=== PATIENT | female | born 1935 | race Caucasian/White ===

== ENCOUNTER → 2016-03-13 | Outpatient (CLI) | payer MEDICARE, OTHER | LOC: OD 11:09 | PROVIDERS: ATTEND Internal Medicine Geriatric Medicine | DX: D63.8 Anemia in other chronic diseases classified elsewhere (principal) | CPT/HCPCS: 36415; 82668 ==

== ENCOUNTER 2017-11-27 22:49 | Observation (INO) | payer MEDICARE, OTHER ==
[2017-11-27] MEDS ORDERED: AMOXICILLIN TR/POT CLAVULANATE 500-125 MG TAB PO ONE (23:35)
--- NOTE | 2017-11-27 23:36 | ER Document Report ---
ED General - General Chief Complaint: Chest Pain Stated Complaint: DOG BITE Time Seen by Provider: 11/27/17 22:59 Notes: Patient is a 82-year-old female with CAD that presents to the emergency department for chief complaint of chest pain, and dog bite to the right hand. Patient states that earlier today a pimple got in her backyard, and in the biting her on the right thumb, but in the event of all this she started having chest tightness in her right chest. Which has resolved since then. But she is concerned because she does have a history of CAD with stents. She rated the pain at the time as a 4 out of 10 as a chest tightness in the right side, which was similar to her prior chest pain symptoms when she states she had her [place]. She had mild shortness of breath associated with this, but no nausea vomiting or diaphoresis. She denies any significant pain associated with the bite mary kay on her right thumb. She states that the animal control officers were able to quarantine the 2 pit bulls that were involved in this incident. She is not sure of their rabies vaccination status, but they are being monitored by animal control. She denies noting any recent fevers, chills, cough. Past Medical History: CAD, hypertension, GERD, hyperlipidemia Past Surgical History: PCI with stenting Social History: Denies tobacco, alcohol or drug use. Family History: Reviewed and noncontributory for presenting illness Allergies: Reviewed, see documented allergy list. REVIEW OF SYSTEMS: Unless otherwise stated in this report the patient's positive and negative responses for review of systems for constitutional, eyes, ENT, cardiovascular, respiratory, gastrointestinal, neurological, genitourinary, musculoskeletal, and integumentary systems and related systems to the presenting problem are either as stated in the HPI or were not pertinent or were negative for the symptoms and/or complaints related to the presenting medical problem. PHYSICAL EXAMINATION: Vital signs reviewed, nursing noted reviewed. GENERAL: Elderly female and in no acute distress. HEAD: Atraumatic, normocephalic. EYES: Eyes appear normal, extraocular movements intact, sclera anicteric, conjunctiva are normal. ENT: nares patent, oropharynx clear without exudates. Moist mucous membranes. NECK: Normal range of motion, supple without lymphadenopathy LUNGS: Breath sounds clear to auscultation bilaterally and equal. No wheezes rales or rhonchi. HEART: Regular rate and rhythm without murmurs ABDOMEN: Soft, nontender, normoactive bowel sounds. No rebound, guarding, or rigidity. No masses appreciated. EXTREMITIES: Nontender, good range of motion, no pitting or edema. There is a small puncture wound over the right dorsal aspect of her thumb at the MCP joint , this is very superficial, just barely penetrates the skin, no active bleeding. There is mild ecchymosis associated with this. The patient otherwise has good range of motion of the thumb, and is not complaining of any significant pain with range of motion. Tendon function is intact. The rest of the patient's extremity exam is grossly unremarkable. NEUROLOGICAL: No focal neurological deficits. Moves all extremities spontaneously Motor and sensory grossly intact on exam. PSYCH: Normal mood, normal affect. SKIN: Warm, Dry, normal turgor, no rashes or lesions noted on exposed skin TRAVEL OUTSIDE OF THE [place] IN LAST 30 DAYS: No - Related Data Allergies/Adverse Reactions: oxycodone HCl [From Percocet] Allergy (Severe, Verified 01/27/14 16:23) throw up violently zolpidem tartrate [From Ambien] Adverse Reaction (Intermediate, Verified 16:23) unable to sleep Past Medical History - Social History Smoking Status: Never Smoker Family History: Reviewed & Not Pertinent - Past Medical History Cardiac Medical History: Reports: Hx Coronary Artery Disease, Hx Heart Attack, Hx Hypercholesterolemia, Hx Hypertension Pulmonary Medical History: Reports: Hx COPD Denies: Hx Asthma, Hx Bronchitis, Hx Pneumonia Neurological Medical History: Denies: Hx Cerebrovascular Accident, Hx Seizures Musculoskeletal Medical History: Reports Hx Arthritis - right knee Past Surgical History: Reports: Hx Cardiac Surgery - 3 stents, Hx Coronary Stent - x3, Hx Orthopedic Surgery - left foot, Hx Tonsillectomy. Denies: Hx Hysterectomy - Immunizations Hx Diphtheria, Pertussis, Tetanus Vaccination: Yes Hx Pneumococcal Vaccination: 02/25/07 Physical Exam - Vital signs Vitals: Temp Pulse Resp BP Pulse Ox 98.1 F 96 18 188/89 H 99 10 22:56 10 22:56 10 22:56 10 22:56 11/27/17 22:56 Course - Re-evaluation Re-evalutation: Patient seen and examined vital signs reviewed. Laboratory data and imaging were ordered as appropriate for the patient's presenting symptoms and complaint, with consideration of any critical or life threatening conditions that may be associated with their obtained history and exam as noted above. Patient was treated with aspirin, and tetanus vaccination, given low risk wound , and domestic animals, that were on by neighbors, I discussed that the patient rabies vaccination and immunoglobulin, and feel that in her case is some not be necessary as the dogs are being quarantined by animal control. Patient was agreeable to this plan of care. She was given Augmentin for her bite wound as well. Results were reviewed when available and demonstrated slightly elevated troponin , but not in the positive range. She was noted to have a new spiculated right lung lesion, concerning for carcinoma, patient was noted to be hyponatremic and hypercalcemic as well, concerning for possible small cell lung carcinoma. I did order CT of the chest without contrast to further delineate this mass. The patient was re-evaluated and was stable, discussed results with her, and admission, which she was agreeable to Evaluation was most consistent with chest pain, abnormal troponin, hyponatremia , hypercalcemia, and right lung mass. Results were discussed with the patient at this point after careful consideration I feel that that patient should be admitted to the hospital. This was discussed with the patient that it is in the best interest for their care to be admitted for further evaluation and management. Patient agreed with this plan of care. A call was placed to the admitted physician, Dr. Dawson who graciously accepted the patient onto their service. *Note is created using voice recognition software and may contain spelling, syntax or grammatical errors. Laboratory 11/27/17 11/27/17 11/27/17 23:26 23:26 23:26 WBC 8.4 RBC 3.75 Hgb 12.0 Hct 34.1 L MCV 91 MCH 32.0 MCHC 35.1 RDW 14.0 Plt Count 361 Seg Neutrophils % 82.5 H Lymphocytes % 11.0 L Monocytes % 5.8 Eosinophils % 0.2 Basophils % 0.5 Absolute Neutrophils 6.9 Absolute Lymphocytes 0.9 Absolute Monocytes 0.5 Absolute Eosinophils 0.0 Absolute Basophils 0.0 Sodium 131.1 L Potassium 4.4 Chloride 97 L Carbon Dioxide 21 L Anion Gap 13 BUN 28 H Creatinine 0.92 Est GFR ( Amer) > 60 Est GFR (Non-Af Amer) 58 L Glucose 118 H Calcium 10.5 H Total Bilirubin 0.6 Direct Bilirubin 0.2 Neonat Total Bilirubin Not Reportable Neonat Direct Bilirubin Not Reportable Neonat Indirect Bili Not Reportable AST 56 H ALT 40 Alkaline Phosphatase 58 Troponin I 0.021 Total Protein 8.4 H Albumin 4.6 Chest X-Ray 11/27/17 23:35 IMPRESSION: There is presence of a 2.5 x 2.3 cm nodular mass in the medial mid right lung zone, new in appearance. This lesion has spiculated margins and is highly suspicious for malignancy. Further evaluation of this lesion with dedicated CT of the chest is suggested . Chest CT 11/28/17 00:27 IMPRESSION: There is presence of a 2.5 x 2.6 x 2.8 cm mass in the medial aspect of the right upper lobe of the lung with spiculated margins and encroaching the right hilum. This lesion is highly suspicious for malignancy. Note is made of few pathologically enlarged lymph nodes in the mediastinum, the largest seen in the right paratracheal region and measuring 12 mm in short axis dimension. These findings can be further assessed with a CT PET examination TECHNICAL DOCUMENTATION: Quality ID # 436: Final reports with documentation of one or more dose reduction techniques (e.g., Automated exposure control, adjustment of the mA and/or kV according to patient size, use of iterative reconstruction technique) 2010 [employer]- All Rights Reserved - Vital Signs Vital signs: Temp Pulse Resp BP Pulse Ox 98.1 F 96 21 H 177/91 H 100 11/27/17 22:56 11/27/17 22:56 11/27/17 23:31 11/27/17 23:31 11/27/17 23:39 - Laboratory Result Diagrams: 11/27/17 23:26 11/27/17 23:26 Laboratory results interpreted by me: 11/27/17 11/27/17 23:26 23:26 Hct 34.1 L Seg Neutrophils % 82.5 H Lymphocytes % 11.0 L Sodium 131.1 L Chloride 97 L Carbon Dioxide 21 L BUN 28 H Est GFR (Non-Af Amer) 58 L Glucose 118 H Calcium 10.5 H AST 56 H Total Protein 8.4 H - EKG Interpretation by Me Additional EKG results interpreted by me: EKG demonstrates sinus rhythm with a ventricular rate of 90 bpm, normal axis, normal intervals, there is T wave inversion in lead III, aVF, no ST changes noted. This is compared with prior EKG, without significant change. Discharge - Discharge Clinical Impression: Mass of right lung, Hyponatremia, Hypercalcemia Chest pain Qualifiers: Chest pain type: unspecified Qualified Code(s): R07.9 - Chest pain, unspecified Dog bite Qualifiers: Encounter type: initial encounter Qualified Code(s): W54.0XXA - Bitten by dog, initial encounter Condition: Stable Disposition: ADMITTED OBSERVATION Admitting Provider: [facility] Admitted: Telemetry
[2017-11-27 23:46] LABS: ABSOLUTE LYMPHOCYTES (AUTO) 0.9 10^3/uL (0.5-4.7); ABSOLUTE MONOCYTES (AUTO) 0.5 10^3/uL (0.1-1.4); ABSOLUTE NEUT (AUTO) 6.9 10^3/uL (1.7-8.2); BASOPHILS % (AUTO) 0.5 % (0-2); EOSINOPHILS % (AUTO) 0.2 % (0-6); HEMATOCRIT 34.1 % (36.0-47.0); MEAN CORPUSCULAR HGB CONC 35.1 g/dL (32.0-36.0); MEAN CORPUSCULAR VOLUME 91 fl (80-97); MONOCYTES % (AUTO) 5.8 % (3-13); PLATELET COUNT 361 10^3/uL (150-450); RED BLOOD COUNT 3.75 10^6/uL (3.72-5.28); SEGMENTED NEUTROPHILS % (AUTO) 82.5 % (42-78); TOTAL CELLS COUNTED % (AUTO) 100 %; WHITE BLOOD COUNT 8.4 10^3/uL (4.0-10.5)
[2017-11-27 23:55] LABS: ALANINE AMINOTRANSFERASE 40 U/L (9-52); ALBUMIN 4.6 g/dL (3.5-5.0); ALKALINE PHOSPHATASE 58 U/L (38-126); ANION GAP 13 (5-19); ASPARTATE AMINO TRANSFERASE 56 U/L (14-36); BILIRUBIN,DIRECT 0.2 mg/dL (0.0-0.4); BILIRUBIN,TOTAL 0.6 mg/dL (0.2-1.3); BLOOD UREA NITROGEN 28 mg/dL (7-20); CALCIUM 10.5 mg/dL (8.4-10.2); CARBON DIOXIDE 21 mmol/L (22-30); CHLORIDE 97 mmol/L (98-107); GLUCOSE 118 mg/dL (75-110); POTASSIUM 4.4 mmol/L (3.6-5.0); SODIUM 131.1 mmol/L (137-145); TOTAL PROTEIN 8.4 g/dL (6.3-8.2)
--- NOTE | 2017-11-28 00:13 | RADIOLOGY REPORT (SQ) ---
PROCEDURE: XR CHEST 1 VIEW HISTORY: right chest pain COMPARISON: 11/28/2014 TECHNIQUE: The current study was done on 11/27/2017 at 11:45 PM Single projection of the chest was done. FINDINGS: There is presence of a 2.5 x 2.3 cm nodular mass in the medial mid right lung zone, new in appearance. This lesion has spiculated margins and is highly suspicious for malignancy. Further evaluation of this lesion with dedicated CT of the chest is suggested . There are no discrete airspace infiltrates, pneumothoraces or pleural effusions. The pulmonary vascularity is normal. The cardiomediastinal silhouette is stable. IMPRESSION: There is presence of a 2.5 x 2.3 cm nodular mass in the medial mid right lung zone, new in appearance. This lesion has spiculated margins and is highly suspicious for malignancy. Further evaluation of this lesion with dedicated CT of the chest is suggested .
[2017-11-28] MEDS ORDERED: NORMAL SALINE 1000 ML 1,000 ML IV ONE (00:21)
[2017-11-28] MEDS ORDERED: NORMAL SALINE 500 ML IV ONE (00:22)
[2017-11-28] MEDS ORDERED: ASPIRIN 81 MG TABLET, CHEWABLE PO ONE (00:31)
[2017-11-28] MEDS ORDERED: DIPH/PERTUSS(ACELL)/TETANUS VAC/PF 0.5 ML SYR (>=10YO) IM ONE (00:32)
--- NOTE | 2017-11-28 00:58 | RADIOLOGY REPORT (SQ) ---
EXAM DESCRIPTION: CT CHEST WITHOUT IV CONTRAST COMPLETED DATE/TME: 11/28/2017 00:27 CLINICAL HISTORY: 82 years, Female, RIGHT LUNG LESION COMPARISON: Chest x-ray done on the same day TECHNIQUE: CT of the chest was done in orthogonal planes without intravenous contrast Images stored on PACS. All CT scanners at this facility use dose modulation, iterative reconstruction, and/or weight based dosing when appropriate to reduce radiation dose to as low as reasonably achievable (ALARA). [facility]: Dose Right [facility]: CareDose [facility]: Dose Right [facility]: Teradose 4D [facility]: Smart Shockwave [facility] LIMITATIONS: None. FINDINGS: There is presence of a 2.5 x 2.6 x 2.8 cm mass in the medial aspect of the right upper lobe of the lung with spiculated margins and encroaching the right hilum. This lesion is highly suspicious for malignancy. Note is made of few pathologically enlarged lymph nodes in the mediastinum, the largest seen in the right paratracheal region and measuring 12 mm in short axis dimension. Few reactive lymph nodes are also seen in the AP window in the anterior mediastinum. There is presence of changes of COPD with areas of linear parenchymal scarring with superimposed mild pulmonary fibrosis in the periphery of the bilateral lower lobes of the lung. There is no pleural effusion or pneumothorax. There is no aneurysmal dilatation of the thoracic aorta. Multilevel degenerative changes seen in the thoracic spine. There are no significant findings in the visualized upper abdomen IMPRESSION: There is presence of a 2.5 x 2.6 x 2.8 cm mass in the medial aspect of the right upper lobe of the lung with spiculated margins and encroaching the right hilum. This lesion is highly suspicious for malignancy. Note is made of few pathologically enlarged lymph nodes in the mediastinum, the largest seen in the right paratracheal region and measuring 12 mm in short axis dimension. These findings can be further assessed with a CT PET examination TECHNICAL DOCUMENTATION: Quality ID # 436: Final reports with documentation of one or more dose reduction techniques (e.g., Automated exposure control, adjustment of the mA and/or kV according to patient size, use of iterative reconstruction technique) 2010 [employer]- All Rights Reserved
[2017-11-28] MEDS: NORMAL SALINE 1000 ML 1,000 ML IV PRN ×2 (03:51→13:41)
--- NOTE | 2017-11-28 08:34 | PDOC H&P ---
History of Present Illness Admission Date/PCP: 11/28/17 00:41 KIRK CARLYLE Patient complains of: Chest pain History of Present Illness: DESMOND JACKSON is a 82 year old female patient known to my practice who presented to the ED following aggravated incident involving her dog and two other pit bulls dogs that belong to her neighbour. Following her experience she developed chest discomfort and decided to present to the ED for further evaluation. She reported associated slight shortness of breath but denied any definite chest pain, palpitation, diaphoresis, nausea or vomiting. She reported a small bite lesion on her right thumb. She denied any fever of chills. The involved dogs are currently under local animal control quarantine observation. Her initial evaluation in the ED was significant for abnormal chest CT scan with right lung speculated mass and hyponatremia. She was advised hospitalization for rule out acute coronary syndrome in view of her prior history of stent angioplasty. Her morbidities include CAD s/p PCI with stenting , hypertension, hyperlipidemia, and GERD. Past Medical History Cardiac Medical History: Reports: Coronary Artery Disease, Myocardial Infarction , Hyperlipidema, Hypertension Pulmonary Medical History: Reports: Chronic Obstructive Pulmonary Disease (COPD) Denies: Asthma, Bronchitis, Pneumonia Neurological Medical History: Denies: Seizures Musculoskeltal Medical History: Reports: Arthritis - right knee Hematology: Denies: Anemia Past Surgical History Past Surgical History: Reports: Coronary Stent - x3, Orthopedic Surgery - left foot, Tonsillectomy Denies: Hysterectomy Social History Smoking Status: Never Smoker Frequency of Alcohol Use: None Hx Recreational Drug Use: No Hx Prescription Drug Abuse: No - Advance Directive Resuscitation Status: Full Code Family History Family History: Reviewed & Not Pertinent Parental Family History Reviewed: Yes Children Family History Reviewed: Yes Sibling(s) Family History Reviewed.: Yes Medication/Allergy Home Medications: Aspirin [Aspirin EC] 81 mg PO DAILY 11/28/17 Atorvastatin Calcium [Lipitor 10 mg Tablet] 10 mg PO QHS 11/28/17 Azilsartan Medoxomil [Edarbi] 80 mg PO DAILY 11/28/17 Biotin [Biotin 1 mg Tablet] 1 mg PO DAILY 11/28/17 Calcium Carbonate [Calcium] 600 mg PO DAILY 11/28/17 Ergocalciferol (Vitamin D2) [Drisdol 50,000 unit (1.25MG) Capsule] 50,000 unit PO .MONTHLY 11/28/17 Esomeprazole Mag Trihydrate [Nexium] 40 mg PO DAILY 11/28/17 Eszopiclone [Lunesta] 1 mg PO QHS 11/28/17 Felodipine [Felodipine ER] 10 mg PO QPM 11/28/17 Fluticasone Propionate [Flonase Nasal [place] 50 Mcg/[place] 16 gm] 2 spray NASL DAILYP PRN 11/28/17 Lutein 6 mg PO DAILY 11/28/17 Melatonin [Melatonin 5 mg Tablet] 5 mg PO QHS 11/28/17 Montelukast Sodium [Singulair 10 mg Tablet] 10 mg PO QPM 11/28/17 Multivit-Min/Iron/Folic/Lutein [Centrum Silver Women Tablet] 1 tab PO DAILY 06/12 [place]-3S/Dha/Epa/Fish Oil [Fish Oil 1,200 mg Softgel] 2 cap PO BID 11/28/17 Risedronate Sodium [Actonel 150 mg Tablet] 150 mg PO .MONTHLY 11/28/17 Zinc 50 mg PO DAILY 11/28/17 Allergies/Adverse Reactions: oxycodone HCl [From Percocet] Allergy (Severe, Verified 01/27/14 16:23) throw up violently zolpidem tartrate [From Ambien] Adverse Reaction (Intermediate, Verified 16:23) unable to sleep Physical Exam Vital Signs: Temp Pulse Resp BP Pulse Ox 97.8 F 98 15 167/82 H 100 11/28/17 02:20 11/28/17 02:20 11/28/17 02:20 11/28/17 02:20 11/28/17 02:20 Intake & Output 11/27/17 11/28/17 11/29/17 06:59 06:59 06:59 Intake Total 680 Balance 680 Weight 58.4 kg General appearance: PRESENT: no acute distress, well-developed, well-nourished Head exam: PRESENT: atraumatic, normocephalic Eye exam: PRESENT: conjunctiva pink, EOMI, PERRLA. ABSENT: scleral icterus Ear exam: PRESENT: normal external ear exam Mouth exam: PRESENT: moist Respiratory exam: PRESENT: clear to auscultation aleksandra Cardiovascular exam: PRESENT: RRR. ABSENT: diastolic murmur, rubs, systolic murmur Vascular exam: PRESENT: normal capillary refill. ABSENT: pallor GI/Abdominal exam: PRESENT: normal bowel sounds, soft. ABSENT: distended, guarding, mass, organolmegaly, rebound, tenderness Rectal exam: PRESENT: deferred Extremities exam: PRESENT: tenderness - minimally around right thumb site of dog bite vs scratched. ABSENT: pedal edema Musculoskeletal exam: PRESENT: deformity - related to multiple joints involvement with arthritis. Neurological exam: PRESENT: alert, awake, oriented to person, oriented to place , oriented to time, oriented to situation, CN II-XII grossly intact. ABSENT: motor sensory deficit Psychiatric exam: PRESENT: appropriate affect, normal mood. ABSENT: homicidal ideation, suicidal ideation Skin exam: PRESENT: dry, intact, warm. ABSENT: cyanosis, rash Results Laboratory Results: I reviewed her laboratory findings on [employer] and contribute significantly to my medical decision making. 11/28/17 05:13 Troponin I 0.043 Impressions: Chest X-Ray 11/27/17 23:35 IMPRESSION: There is presence of a 2.5 x 2.3 cm nodular mass in the medial mid right lung zone, new in appearance. This lesion has spiculated margins and is highly suspicious for malignancy. Further evaluation of this lesion with dedicated CT of the chest is suggested . Chest CT 11/28/17 00:27 IMPRESSION: There is presence of a 2.5 x 2.6 x 2.8 cm mass in the medial aspect of the right upper lobe of the lung with spiculated margins and encroaching the right hilum. This lesion is highly suspicious for malignancy. Note is made of few pathologically enlarged lymph nodes in the mediastinum, the largest seen in the right paratracheal region and measuring 12 mm in short axis dimension. These findings can be further assessed with a CT PET examination TECHNICAL DOCUMENTATION: Quality ID # 436: Final reports with documentation of one or more dose reduction techniques (e.g., Automated exposure control, adjustment of the mA and/or kV according to patient size, use of iterative reconstruction technique) 2010 [employer]- All Rights Reserved Assessment & Plan - Diagnosis (1) Chest pain with high risk of acute coronary syndrome Is this a current diagnosis for this admission?: Yes Plan: See admitting attending physician orders. (2) Dog bite Qualifiers: Encounter type: initial encounter Qualified Code(s): W54.0XXA - Bitten by dog, initial encounter Is this a current diagnosis for this admission?: Yes Plan: See admitting attending physician orders. (3) Mass of right lung Is this a current diagnosis for this admission?: Yes Plan: See admitting attending physician orders. (4) Hypercalcemia Is this a current diagnosis for this admission?: Yes Plan: See admitting attending physician orders. (5) Hyponatremia Is this a current diagnosis for this admission?: Yes Plan: See admitting attending physician orders. (6) CAD (coronary artery disease) Qualifiers: Coronary Disease-Associated Artery/Lesion type: [place] artery [place] vs. transplanted heart: [place] heart Associated angina: without angina Qualified Code(s): I25.10 - Atherosclerotic heart disease of [place] coronary artery without angina pectoris Is this a current diagnosis for this admission?: Yes Plan: See admitting attending physician orders. (7) HTN (hypertension) Qualifiers: Hypertension type: essential hypertension Qualified Code(s): I10 - Essential (primary) hypertension Is this a current diagnosis for this admission?: Yes Plan: See admitting attending physician orders. (8) HLD (hyperlipidemia) Qualifiers: Hyperlipidemia type: unspecified Qualified Code(s): E78.5 - Hyperlipidemia , unspecified Is this a current diagnosis for this admission?: Yes Plan: See admitting attending physician orders. (9) GERD (gastroesophageal reflux disease) Qualifiers: Esophagitis presence: without esophagitis Qualified Code(s): K21.9 - Gastro -esophageal reflux disease without esophagitis Is this a current diagnosis for this admission?: Yes Plan: See admitting attending physician orders. - Time Time Spent: 50 to 70 Minutes - Inpatient Certification Based on my medical assessment, after consideration of the patient's comorbidities, presenting symptoms, or acuity I expect that the services needed warrant INPATIENT care.: No I certify that my determination is in accordance with my understanding of Medicare's requirements for reasonable and necessary INPATIENT services [42 CFR 412.3e].: No Post Hospital Care: D/C [facility] Documentation - Plan Summary Plan Summary: See admitting attending physician orders.
[2017-11-28] MEDS ORDERED: FLUTICASONE NASAL SPRAY 50 MCG/SPRY 120 SPRAY/16 GM NASL PRN (08:35)
--- NOTE | 2017-11-28 08:53 | EKG REPORT ---
SEVERITY:- ABNORMAL ECG - SINUS RHYTHM PROBABLE LEFT ATRIAL ABNORMALITY INCOMPLETE RIGHT BUNDLE BRANCH BLOCK ABNORMAL T, CONSIDER ISCHEMIA, INFERIOR LEADS : Confirmed by: Alexander Carvajal 28-Nov-2017 08:52:32
[2017-11-28] MEDS ORDERED: LANSOPRAZOLE 30 MG TAB.RAP.DR PO SCH (09:45)
[2017-11-28] MEDS ORDERED: ENOXAPARIN SODIUM INJ 40 MG/0.4 ML DISP.SYRIN SUBCUT SCH (10:00)
[2017-11-28] MEDS ORDERED: FISH OIL PO SCH (10:00)
[2017-11-28] MEDS ORDERED: OMEGA PO SCH (10:00)
[2017-11-28] MEDS ORDERED: (PENDING PHARMACY ID) (Azilsartan Medoxomil [Edarbi] 80 MG) PO SCH (10:00)
[2017-11-28] MEDS ORDERED: EPA PO SCH (10:00)
[2017-11-28] MEDS ORDERED: ASPIRIN 81 MG TABLET, ENT COATED PO SCH (10:00)
[2017-11-28] MEDS ORDERED: (PENDING PHARMACY ID) (Calcium Carbonate [Calcium] 600 MG) PO SCH (10:00)
[2017-11-28] MEDS ORDERED: DHA PO SCH (10:00)
[2017-11-28] MEDS: AMOXICILLIN TR/POT CLAVULANATE 500-125 MG TAB PO SCH ×2 (10:17→14:54)
[2017-11-28] MEDS ORDERED: CALCIUM CARBONATE 500 MG TABLET PO SCH (11:00)
[2017-11-28] MEDS ORDERED: LOSARTAN POTASSIUM 50 MG TABLET PO SCH (11:00)
--- NOTE | 2017-11-28 14:07 | PDOC CONSULTATION ---
Consultation Consult Date: 11/28/17 Attending physician:: KIRK TADEO Consult reason:: Right lung mass History of Present Illness Admission Date/PCP: 11/28/17 00:41 KIRK TADEO History of Present Illness: DESMOND JACKSON is a 82 year old female very hard of hearing present for increasing shortness of breath agitated about her dog getting in a fight with other dogs denies shortness of breath at rest or dips and exertion he does admit to having a cough she denies any hemoptysis her PPD is PPD was negative dates unknown she has had no history of chronic lung disease as a child or adolescent. 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 she has 1 dog and she denies any recent travel she denies angina-like chest pain sleeps on 1-/2-2 pillows no PND no nocturnal cough no edema she is unaware of any snoring or restless sleep she has nocturia anywhere from 3-6 times per night she denies unrestful sleep or excessive daytime somnolence Past Medical History Cardiac Medical History: Reports: Coronary Artery Disease, Myocardial Infarction , Hyperlipidema, Hypertension Pulmonary Medical History: Reports: Chronic Obstructive Pulmonary Disease (COPD) Denies: Asthma, Bronchitis, Pneumonia Neurological Medical History: Denies: Seizures Endocrine Medical History: Denies: Hyperthyroidism, Hypothyroidism, Obesity Renal/ Medical History: Denies: Chronic Kidney Disease, End Stage Renal Disease, Nephrolithiasis Malignancy Medical History: Denies: Brain Cancer, Ovarian Cancer, Renal (Kidney) Cancer GI Medical History: Denies: Cirrhosis, Crohn's Disease Musculoskeltal Medical History: Reports: Arthritis - right knee Denies: Fibromyalgia Skin Medical History: Reports: None Psychiatric Medical History: Reports: None Hematology: Denies: Anemia Infectious Medical History: Reports: None Past Surgical History Past Surgical History: Reports: Coronary Stent - x3, Orthopedic Surgery - left foot, Tonsillectomy Denies: Hysterectomy Social History Information Source: Patient, [facility] Records Lives with: Alone Smoking Status: Never Smoker Passive smoke exposure as: Both Frequency of Alcohol Use: None Hx Recreational Drug Use: No Hx Prescription Drug Abuse: No Do you have pets?: Yes Have you had any respiratory illnesses as a child?: No Have you been exposed to any sick contacts recently?: No Have you had any recent respiratory illnesses?: No Have you travelled outside of [place] in the past 12 months?: No - Advance Directive Resuscitation Status: Full Code Family History Family History: CAD, Malignancy Parental Family History Reviewed: Yes Children Family History Reviewed: Yes Sibling(s) Family History Reviewed.: Yes Medication/Allergy Home Medications: Aspirin [Aspirin EC] 81 mg PO DAILY 11/28/17 Atorvastatin Calcium [Lipitor 10 mg Tablet] 10 mg PO QHS 11/28/17 Azilsartan Medoxomil [Edarbi] 80 mg PO DAILY 11/28/17 Biotin [Biotin 1 mg Tablet] 1 mg PO DAILY 11/28/17 Calcium Carbonate [Calcium] 600 mg PO DAILY 11/28/17 Ergocalciferol (Vitamin D2) [Drisdol 50,000 unit (1.25MG) Capsule] 50,000 unit PO .MONTHLY 11/28/17 Esomeprazole Mag Trihydrate [Nexium] 40 mg PO DAILY 11/28/17 Eszopiclone [Lunesta] 1 mg PO QHS 11/28/17 Felodipine [Felodipine ER] 10 mg PO QPM 11/28/17 Fluticasone Propionate [Flonase Nasal [place] 50 Mcg/[place] 16 gm] 2 spray NASL DAILYP PRN 11/28/17 Lutein 6 mg PO DAILY 11/28/17 Melatonin [Melatonin 5 mg Tablet] 5 mg PO QHS 11/28/17 Montelukast Sodium [Singulair 10 mg Tablet] 10 mg PO QPM 11/28/17 Multivit-Min/Iron/Folic/Lutein [Centrum Silver Women Tablet] 1 tab PO DAILY 06/12 [place]-3S/Dha/Epa/Fish Oil [Fish Oil 1,200 mg Softgel] 2 cap PO BID 11/28/17 Risedronate Sodium [Actonel 150 mg Tablet] 150 mg PO .MONTHLY 11/28/17 Zinc 50 mg PO DAILY 11/28/17 Allergies/Adverse Reactions: oxycodone HCl [From Percocet] Allergy (Severe, Verified 01/27/14 16:23) throw up violently zolpidem tartrate [From Ambien] Adverse Reaction (Intermediate, Verified 16:23) unable to sleep Review of Systems Constitutional: ABSENT: anorexia, chills, fatigue, fever(s), night sweats, weakness Eyes: ABSENT: visual disturbances Ears: ABSENT: hearing changes Nose, Mouth, and Throat: ABSENT: mouth pain, sore throat Cardiovascular: ABSENT: edema, orthropnea, palpitations Respiratory: ABSENT: hemoptysis Gastrointestinal: ABSENT: bloating, coffee ground emesis, dysphagia, hematemesis , hematochezia, melena Genitourinary: ABSENT: dysuria, hematuria Integumentary: ABSENT: pruritus, rash Neurological: ABSENT: abnormal gait, abnormal movements, abnormal speech, focal weakness, frequent falls, lack of coordination, memory loss Psychiatric: ABSENT: hallucinations, homidical ideation, suicidal ideation Endocrine: ABSENT: cold intolerance, heat intolerance, polydipsia, polyuria Hematologic/Lymphatic: ABSENT: easy bruising Allergic/Immunologic: ABSENT: seasonal rhinorrhea Physical Exam Vital Signs: Temp Pulse Resp BP Pulse Ox 98.3 F 83 16 158/70 H 99 11/28/17 07:51 11/28/17 07:51 11/28/17 07:51 11/28/17 07:51 11/28/17 07:51 Intake & Output 11/27/17 11/28/17 11/29/17 06:59 06:59 06:59 Intake Total 680 983 Balance 680 983 Weight 58.4 kg General appearance: PRESENT: no acute distress, cooperative, disheveled, well- developed, well-nourished Head exam: PRESENT: atraumatic, normocephalic Eye exam: PRESENT: conjunctiva pale, EOMI. ABSENT: nystagmus, scleral icterus Mouth exam: PRESENT: moist, neck supple, tongue midline Neck exam: ABSENT: carotid bruit, JVD, lymphadenopathy, thyromegaly, tracheal deviation, tracheostomy Respiratory exam: PRESENT: decreased breath sounds, prolonged expiratory phas, rhonchi, unlabored. ABSENT: retraction, stridor Cardiovascular exam: PRESENT: RRR, +S1, +S2 Pulses: PRESENT: normal radial pulses GI/Abdominal exam: PRESENT: soft. ABSENT: tenderness Extremities exam: ABSENT: calf tenderness, clubbing Musculoskeletal exam: ABSENT: deformity, dislocation Neurological exam: PRESENT: alert, awake Psychiatric exam: PRESENT: normal mood Skin exam: PRESENT: dry, warm Results Laboratory Results: 11/28/17 05:13 Serum Osmolality 281 11/28/17 05:13 Troponin I 0.043 Impressions: Chest X-Ray 11/27/17 23:35 IMPRESSION: There is presence of a 2.5 x 2.3 cm nodular mass in the medial mid right lung zone, new in appearance. This lesion has spiculated margins and is highly suspicious for malignancy. Further evaluation of this lesion with dedicated CT of the chest is suggested . Chest CT 11/28/17 00:27 IMPRESSION: There is presence of a 2.5 x 2.6 x 2.8 cm mass in the medial aspect of the right upper lobe of the lung with spiculated margins and encroaching the right hilum. This lesion is highly suspicious for malignancy. Note is made of few pathologically enlarged lymph nodes in the mediastinum, the largest seen in the right paratracheal region and measuring 12 mm in short axis dimension. These findings can be further assessed with a CT PET examination TECHNICAL DOCUMENTATION: Quality ID # [id number]: Final reports with documentation of one or more dose reduction techniques (e.g., Automated exposure control, adjustment of the mA and/or kV according to patient size, use of iterative reconstruction technique) 2010 [employer]- All Rights Reserved Assessment & Plan - Diagnosis (1) Hyponatremia Is this a current diagnosis for this admission?: Yes Plan: Labs- All tests 24 hr 11/27/17 23:26 Sodium 131.1 L (2) Mass of right lung Is this a current diagnosis for this admission?: Yes Plan: discussed bronchoscopy patient amenable needs to dc asa (3) GERD (gastroesophageal reflux disease) Qualifiers: Esophagitis presence: without esophagitis Qualified Code(s): K21.9 - Gastro -esophageal reflux disease without esophagitis Is this a current diagnosis for this admission?: Yes (4) HTN (hypertension) Qualifiers: Hypertension type: essential hypertension Qualified Code(s): I10 - Essential (primary) hypertension Is this a current diagnosis for this admission?: Yes
[2017-11-28 15:25] LABS: OSMOLALITY,URINE 426 mOsm/kg (300-900)
[2017-11-28 15:41] LABS: URINE SODIUM 117 mmol/L (30-90)
[2017-11-28] MEDS ORDERED: OMEGA-3 ACID ETHYL ESTERS 1 GM CAPSULE PO SCH (17:00)
[2017-11-28] MEDS ORDERED: (PENDING PHARMACY ID) (Felodipine [Felodipine Er] 10 MG) PO SCH (18:00)
[2017-11-28] MEDS ORDERED: AMLODIPINE BESYLATE 10 MG TABLET PO SCH (18:00)
[2017-11-28] MEDS ORDERED: MONTELUKAST SODIUM 10 MG TABLET PO SCH (18:00)
--- NOTE | 2017-11-28 18:45 | PDOC DISCHARGE SUMMARY ---
General - Admit/Disc Date/PCP Admission Date/Primary Care Provider: 11/28/17 00:41 KIRK CARLYLE Discharge Date: 11/28/17 - Discharge Diagnosis (1) Chest pain with high risk of acute coronary syndrome Is this a current diagnosis for this admission?: Yes (2) Dog bite Is this a current diagnosis for this admission?: Yes (3) Mass of right lung Is this a current diagnosis for this admission?: Yes (4) Hypercalcemia Is this a current diagnosis for this admission?: Yes (5) Hyponatremia Is this a current diagnosis for this admission?: Yes (6) CAD (coronary artery disease) Is this a current diagnosis for this admission?: Yes (7) HTN (hypertension) Is this a current diagnosis for this admission?: Yes (8) HLD (hyperlipidemia) Is this a current diagnosis for this admission?: Yes (9) GERD (gastroesophageal reflux disease) Is this a current diagnosis for this admission?: Yes - Additional Information Resuscitation Status: Full Code Discharge Diet: Regular, Other (Comments) - Low fat diet Discharge Activity: Activity As Tolerated Prescriptions: Amox Tr/Potassium Clavulanate [Augmentin "500" Tablet] 1 tab PO Q8 #14 tablet Home Medications: Amox Tr/Potassium Clavulanate [Augmentin "500" Tablet] 1 tab PO Q8 #14 tablet 11/28/17 Aspirin [Aspirin EC] 81 mg PO DAILY 11/28/17 Atorvastatin Calcium [Lipitor 10 mg Tablet] 10 mg PO QHS 11/28/17 Azilsartan Medoxomil [Edarbi] 80 mg PO DAILY 11/28/17 Biotin [Biotin 1 mg Tablet] 1 mg PO DAILY 11/28/17 Calcium Carbonate [Calcium] 600 mg PO DAILY 11/28/17 Ergocalciferol (Vitamin D2) [Drisdol 50,000 unit (1.25MG) Capsule] 50,000 unit PO .MONTHLY 11/28/17 Esomeprazole Mag Trihydrate [Nexium] 40 mg PO DAILY 11/28/17 Eszopiclone [Lunesta] 1 mg PO QHS 11/28/17 Felodipine [Felodipine ER] 10 mg PO QPM 11/28/17 Fluticasone Propionate [Flonase Nasal [place] 50 Mcg/[place] 16 gm] 2 spray NASL DAILYP PRN 11/28/17 Lutein 6 mg PO DAILY 11/28/17 Melatonin [Melatonin 5 mg Tablet] 5 mg PO QHS 11/28/17 Montelukast Sodium [Singulair 10 mg Tablet] 10 mg PO QPM 11/28/17 Multivit-Min/Iron/Folic/Lutein [Centrum Silver Women Tablet] 1 tab PO DAILY 06/12 [place]-3S/Dha/Epa/Fish Oil [Fish Oil 1,200 mg Softgel] 2 cap PO BID 11/28/17 Risedronate Sodium [Actonel 150 mg Tablet] 150 mg PO .MONTHLY 11/28/17 Zinc 50 mg PO DAILY 11/28/17 History of Present Illness Patient complains of: Chest pain, Dog bite History of Present Illness: DESMOND JACKSON is a 82 year old female patient known to my practice who presented to the ED following aggravated incident involving her dog and two other pit bulls dogs that belong to her neighbour. Following her experience she developed chest discomfort and decided to present to the ED for further evaluation. She reported associated slight shortness of breath but denied any definite chest pain, palpitation, diaphoresis, nausea or vomiting. She reported a small bite lesion on her right thumb. She denied any fever of chills. The involved dogs are currently under local animal control quarantine observation. Her initial evaluation in the ED was significant for abnormal chest CT scan with right lung speculated mass and hyponatremia. She was advised hospitalization for rule out acute coronary syndrome in view of her prior history of stent angioplasty. Her morbidities include CAD s/p PCI with stenting , hypertension, hyperlipidemia, and GERD. Hospital Course Hospital Course: Patient was treated with IV N/S fluid support. Her serial cardiac enzymes were within normal. Her symptoms did resolved. She was seen by Dr. Kenny, counter intelligence technician, regarding her right lung mass lesion. She is agreeable to outpatient bronchoscopy. Patient insisted upon discharge home today due to her sick dog. She will follow up with Dr Kenny and myself as instructed upon discharge, Physical Exam Vital Signs: Temp Pulse Resp BP Pulse Ox 98.1 F 73 14 187/62 H 98 11/28/17 18:23 11/28/17 18:23 11/28/17 18:23 11/28/17 18:23 11/28/17 18:23 Intake & Output 11/27/17 11/28/17 11/29/17 06:59 06:59 06:59 Intake Total 680 1455 Output Total 300 Balance 680 1155 Weight 58.4 kg General appearance: PRESENT: no acute distress, well-developed, well-nourished Head exam: PRESENT: atraumatic, normocephalic Ear exam: PRESENT: normal external ear exam Mouth exam: PRESENT: moist Respiratory exam: PRESENT: clear to auscultation aleksandra Cardiovascular exam: PRESENT: RRR. ABSENT: diastolic murmur, rubs, systolic murmur GI/Abdominal exam: PRESENT: normal bowel sounds, soft. ABSENT: distended, guarding, mass, organolmegaly, rebound, tenderness Extremities exam: ABSENT: pedal edema Neurological exam: PRESENT: alert, awake, oriented to person, oriented to place , oriented to time, oriented to situation, CN II-XII grossly intact. ABSENT: motor sensory deficit Skin exam: PRESENT: dry, warm, other - right thumb site of dog bite is clean without any drainage, discharge or significant erythema. Results Laboratory Results: 11/28/17 11/28/17 05:13 15:00 Serum Osmolality 281 Urine Osmolality 426 11/28/17 05:13 Troponin I 0.043 Impressions: Chest X-Ray 11/27/17 23:35 IMPRESSION: There is presence of a 2.5 x 2.3 cm nodular mass in the medial mid right lung zone, new in appearance. This lesion has spiculated margins and is highly suspicious for malignancy. Further evaluation of this lesion with dedicated CT of the chest is suggested . Chest CT 11/28/17 00:27 IMPRESSION: There is presence of a 2.5 x 2.6 x 2.8 cm mass in the medial aspect of the right upper lobe of the lung with spiculated margins and encroaching the right hilum. This lesion is highly suspicious for malignancy. Note is made of few pathologically enlarged lymph nodes in the mediastinum, the largest seen in the right paratracheal region and measuring 12 mm in short axis dimension. These findings can be further assessed with a CT PET examination TECHNICAL DOCUMENTATION: Quality ID # 436: Final reports with documentation of one or more dose reduction techniques (e.g., Automated exposure control, adjustment of the mA and/or kV according to patient size, use of iterative reconstruction technique) 2010 [employer]- All Rights Reserved Qualifiers - * PATIENT BEING DISCHARGED WITH ANY OF THE FOLLOWING DIAGNOSIS: No Plan Discharge Plan: Discharge home today. Follow up with Dr. Kenny and myself as instructed upon discharge.
[2017-11-28 19:23] LABS: CREATINE KINASE MB 2.24 ng/mL (<4.55); TROPONIN I 0.039 ng/mL
[2017-11-28 20:03] VITALS: BP 147/79
--- NOTE | 2017-11-28 20:20 | EKG REPORT ---
SEVERITY:- NORMAL ECG - SINUS RHYTHM NONDIAGNOSTIC ST DEPRESSION LEAD 3 AND AVF : Confirmed by: Alexander Carvajal 28-Nov-2017 20:19:13
[2017-11-28] MEDS ORDERED: ZOLPIDEM TARTRATE 5 MG TABLET PO SCH (22:00)
[2017-11-28] MEDS ORDERED: (PENDING PHARMACY ID) (Eszopiclone [Lunesta] 1 MG) PO SCH (22:00)
[2017-11-28] MEDS ORDERED: ATORVASTATIN CALCIUM 10 MG TABLET PO SCH (22:00)
[2017-11-29] MEDS ORDERED: LANSOPRAZOLE 30 MG TAB.RAP.DR PO SCH (06:00)
[2017-11-29] MEDS ORDERED: MULTIVITAMINS W-IRON TABLET, CHEWABLE PO SCH (10:00)
[2017-12-26] MEDS ORDERED: RISEDRONATE SODIUM 150 MG PO SCH (07:00)
[2017-12-26] MEDS ORDERED: ERGOCALCIFEROL (VITAMIN D2) 50000 UNIT (1.25 MG) CAPSULE PO SCH (10:00)
== END 2017-11-28 20:51 | disposition home or self-care (01) ==
LOC: ER 22:49 → EH 11-28 00:41 → 4N 11-28 02:13
PROVIDERS: ADMIT Internal Medicine Geriatric Medicine; ATTEND Internal Medicine Geriatric Medicine
PROC: 3E0234Z Introduction of Serum, Toxoid and Vaccine into Muscle, Percutaneous Approach (ICD-10-PCS; principal; 2017-11-27)
DX: R07.89 Other chest pain (principal); S60.371A Other superficial bite of right thumb, initial encounter; W54.0XXA Bitten by dog, initial encounter; Y92.007 Garden or yard of unspecified non-institutional (private) residence as the place of occurrence of the external cause; R91.8 Other nonspecific abnormal finding of lung field; E83.52 Hypercalcemia; E87.1 Hypo-osmolality and hyponatremia; I25.10 Atherosclerotic heart disease of native coronary artery without angina pectoris; Z95.5 Presence of coronary angioplasty implant and graft; I10 Essential (primary) hypertension; E78.5 Hyperlipidemia, unspecified; K21.9 Gastro-esophageal reflux disease without esophagitis; R06.02 Shortness of breath; R35.1 Nocturia; I25.2 Old myocardial infarction; Z79.899 Other long term (current) drug therapy; Z79.82 Long term (current) use of aspirin; Z77.22 Contact with and (suspected) exposure to environmental tobacco smoke (acute) (chronic); Z82.49 Family history of ischemic heart disease and other diseases of the circulatory system; Z23 Encounter for immunization
CPT/HCPCS: 93005 ×2; 99285; 96360; 90471; 36415 ×2; 82553; 82550; 83930; 83935; 84300; 85025; 80053; 84484 ×2; 71045; 71250; 90715; 93010 ×2; G0378; A9270 ×9; J7030

== ENCOUNTER 2017-12-12 08:02 | Day surgery (SDC) | payer MEDICARE, OTHER ==
[2017-12-09 12:27] LABS: INTERNATIONAL RATION (INR) 0.88; PROTHROMBIN TIME 12.4 SEC (11.4-15.4)
[2017-12-09 12:28] LABS: PARTIAL THROMBOPLASTIN TIME 27.6 SEC (23.5-35.8)
[2017-12-09 12:29] LABS: ABSOLUTE EOSINOPHILS # (AUTO) 0.1 10^3/uL (0.0-0.6); ABSOLUTE MONOCYTES (AUTO) 0.6 10^3/uL (0.1-1.4); ABSOLUTE NEUT (AUTO) 4.2 10^3/uL (1.7-8.2); BASOPHILS % (AUTO) 0.8 % (0-2); HEMATOCRIT 32.1 % (36.0-47.0); HEMOGLOBIN 11.5 g/dL (12.0-15.5); LYMPHOCYTES % (AUTO) 17.2 % (13-45); MEAN CORPUSCULAR HEMOGLOBIN 32.7 pg (27.0-33.4); MEAN CORPUSCULAR HGB CONC 35.9 g/dL (32.0-36.0); MEAN CORPUSCULAR VOLUME 91 fl (80-97); MONOCYTES % (AUTO) 9.7 % (3-13); PLATELET COUNT 393 10^3/uL (150-450); RED BLOOD COUNT 3.53 10^6/uL (3.72-5.28); RED CELL DISTRIBUTION WIDTH 13.9 % (11.5-14.0); SEGMENTED NEUTROPHILS % (AUTO) 71.3 % (42-78); TOTAL CELLS COUNTED % (AUTO) 100 %; WHITE BLOOD COUNT 5.9 10^3/uL (4.0-10.5)
[2017-12-09 12:50] LABS: ANION GAP 10 (5-19); BLOOD UREA NITROGEN 24 mg/dL (7-20); CALCIUM 9.8 mg/dL (8.4-10.2); CARBON DIOXIDE 25 mmol/L (22-30); CHLORIDE 97 mmol/L (98-107); GLUCOSE 100 mg/dL (75-110); POTASSIUM 4.4 mmol/L (3.6-5.0); SODIUM 131.7 mmol/L (137-145)
[~2017-12-12 08:02] MED LIST: ACETAMINOPHEN 325 MG TABLET PO SCH; ALBUTEROL SULFATE 0.083% NEB 2.5 MG/3 ML AMPUL NEB PRN; LACTATED RINGERS 1000 ML IV PRN; LIDOCAINE 4% INJ/PF (40 MG/ML) 5 ML AMPUL NEB PRN
[2017-12-12] MEDS ORDERED: KETAMINE HCL INJ 500 MG/10 ML VIAL ONE (08:11)
[2017-12-12] MEDS ORDERED: FENTANYL CITRATE INJ/PF 100 MCG/2 ML AMPUL ONE (08:11)
[2017-12-12] MEDS ORDERED: MIDAZOLAM 2 MG/2 ML INJ ONE (08:11)
[2017-12-12] MEDS ORDERED: PROPOFOL INJ 200 MG/20 ML VIAL IV ONE (08:12)
[2017-12-12] MEDS ORDERED: DEXMEDETOMIDINE INJ 80 MCG/20 ML VIAL IV ONE (08:12)
[2017-12-12] MEDS ORDERED: SUGAMMADEX SODIUM 200 MG/2 ML SDV IV ONE (08:12)
[2017-12-12] MEDS ORDERED: EPHEDRINE SULFATE INJ 50 MG/1 ML AMPULE ONE (08:12)
[2017-12-12] MEDS ORDERED: ALBUTEROL SULFATE 0.083% NEB 2.5 MG/3 ML AMPUL NEB ONE (08:47)
[2017-12-12] MEDS ORDERED: LIDOCAINE 4% INJ/PF (40 MG/ML) 5 ML AMPUL ONE (08:49)
[2017-12-12] MEDS ORDERED: AMPICILLIN SOD/SULBACTAM 1.5 GM VIAL ONE ×2 (11:03→11:05)
--- NOTE | 2017-12-12 12:02 | RADIOLOGY REPORT (SQ) ---
EXAM DESCRIPTION: CHEST SINGLE VIEW COMPLETED DATE/TIME: 12/12/2017 11:34 am REASON FOR STUDY: S/P Lung Biospy COMPARISON: 11/28/2014 EXAM PARAMETERS: NUMBER OF VIEWS: One view. TECHNIQUE: Single frontal radiographic view of the chest acquired. RADIATION DOSE: NA LIMITATIONS: None. FINDINGS: LUNGS AND PLEURA: Known right upper lobe mass is unchanged. No pneumothorax. MEDIASTINUM AND HILAR STRUCTURES: Stable. HEART AND VASCULAR STRUCTURES: Stable heart size. BONES: No acute findings. HARDWARE: None in the chest. OTHER: No other significant finding. IMPRESSION: Known right upper lobe mass status post biopsy. No pneumothorax. TECHNICAL DOCUMENTATION: JOB ID: [id number] [employer]- All Rights Reserved Reading location - IP/workstation name: [facility]2
[2017-12-12 13:05] LABS: FLUID APPEARANCE CLOUDY; FLUID COLOR RED; FLUID TYPE BRONCHIAL WASH; FLUID VISCOSITY LIQUID
[2017-12-12 13:31] VITALS: BP 165/84
--- NOTE | 2017-12-12 14:31 | RADIOLOGY REPORT (SQ) ---
EXAM DESCRIPTION: NO CHG FLUORO; CHEST SINGLE VIEW COMPLETED DATE/TIME: 12/12/2017 1:44 pm REASON FOR STUDY: BRONCHOSCOPY WITH BIOPSY RT LUNG ASST W/ FLUORO R91.8 OTHER NONSPECIFIC ABNORMAL FINDING OF LUNG FIELD Z79.01 CARE HOME (CURRENT) USE OF ANTICOAGULANTS COMPARISON: None. FLUOROSCOPY TIME: 1.7 minutes 9 images saved to PACS. TECHNIQUE: Intra-operative images acquired during surgical procedure to evaluate progress. NUMBER OF IMAGES: 9 LIMITATIONS: None. FINDINGS: Selected images from bronchoscopy. IMPRESSION: IMAGE(S) OBTAINED DURING PROCEDURE. COMMENT: Quality ID 145: Final reports for procedures using fluoroscopy that document radiation exp osure indices, or exposure time and number of fluorographic images (if radiation exposure indices are not available) Please consult full operative report of the attending physician for description of the procedure. TECHNICAL DOCUMENTATION: JOB ID: [id number] [employer]- All Rights Reserved Reading location - IP/workstation name: [facility]
--- NOTE | 2017-12-12 14:31 | RADIOLOGY REPORT (SQ) ---
EXAM DESCRIPTION: NO CHG FLUORO; CHEST SINGLE VIEW COMPLETED DATE/TIME: 12/12/2017 1:44 pm REASON FOR STUDY: BRONCHOSCOPY WITH BIOPSY RT LUNG ASST W/ FLUORO R91.8 OTHER NONSPECIFIC ABNORMAL FINDING OF LUNG FIELD Z79.01 INTERMEDIATE (CURRENT) USE OF ANTICOAGULANTS COMPARISON: None. FLUOROSCOPY TIME: 1.7 minutes 9 images saved to PACS. TECHNIQUE: Intra-operative images acquired during surgical procedure to evaluate progress. NUMBER OF IMAGES: 9 LIMITATIONS: None. FINDINGS: Selected images from bronchoscopy. IMPRESSION: IMAGE(S) OBTAINED DURING PROCEDURE. COMMENT: Quality ID 145: Final reports for procedures using fluoroscopy that document radiation exp osure indices, or exposure time and number of fluorographic images (if radiation exposure indices are not available) Please consult full operative report of the attending physician for description of the procedure. TECHNICAL DOCUMENTATION: JOB ID: [id number] [employer]- All Rights Reserved Reading location - IP/workstation name: [facility]
--- NOTE | 2017-12-12 16:43 | Operative Report ---
Operative Report DATE OF SURGERY: 12/12/17 Operative Report: She was kept n.p.o. 12 hours prior to procedure into the preop area where IV access was established consents and forms were reviewed and sign patient then taken to bronchoscopy suite and was intubated in rapid sequence per anesthesiology. Then using a T size Olympus scope tracheobronchial tree was explored there is no abnormalities of the distal trachea and no splaying of the horacio the left mainstem bronchus left upper lobe lingula and right lower lobes appeared to be within normal limits there were no abnormalities of the right mainstem bronchus right bronchus intermedius right middle lobe right lower lobe. Right upper lobe displays some sports distortion of all subsegments with submucosal swelling these areas were very friable and were oozing some blood lavage fluid transbronchial biopsies and Robin needle biopsies of the submucosal area were taken patient tolerated procedure well postprocedure SaO2 was 97% and postprocedure chest x-ray did not demonstrate a pneumothorax. The patient was given prophylactically 3 g of Unasyn IV. Pictures were taken area in the chart and the speech is also reviewed with the patient's family. Lavage fluid and tissue was sent to the lab for appropriate cultures and studies PREOPERATIVE DIAGNOSIS: Right upper lobe mass POSTOPERATIVE DIAGNOSIS: Right upper lobe mass OPERATION: Fiberoptic bronchoscopy with bronchoalveolar lavage, transbronchial biopsies and Robin needle biopsy SURGEON: WILLIAM GIMENEZ ANESTHESIA: GA TISSUE REMOVED OR ALTERED: Bronchoalveolar lavage fluid right upper lobe; transbronchial biopsies right upper lobe; Robin needle biopsies right upper lobe COMPLICATIONS: None ESTIMATED BLOOD LOSS: Less than 5 cc
== END 2017-12-12 13:30 | disposition home or self-care (01) ==
LOC: OROUT 08:02
PROVIDERS: ATTEND Internal Medicine Pulmonary Disease
DX: R91.8 Other nonspecific abnormal finding of lung field (principal); I10 Essential (primary) hypertension; Z88.5 Allergy status to narcotic agent; Z88.8 Allergy status to other drugs, medicaments and biological substances; I25.2 Old myocardial infarction; Z79.899 Other long term (current) drug therapy; Z87.891 Personal history of nicotine dependence; Z79.82 Long term (current) use of aspirin
CPT/HCPCS: 31628; 31629; 31624; 36415; 87070; 87205; 87206; 87116; 87101; 85025; 85610; 85730; 89050; 87077; 80048; 87186; 87015; 88104 ×2; 88305 ×2; 71045; 94640; J3490 ×2; J0295; J2704; A9270; 320; J2250; J3010

== ENCOUNTER → 2017-12-31 | Outpatient (CLI) | payer MEDICARE, OTHER ==
--- NOTE | 2018-01-01 13:12 | RADIOLOGY REPORT (SQ) ---
EXAM DESCRIPTION: PET CT SKULL/THIGH COMPLETED DATE/TIME: 12/31/2017 7:56 pm REASON FOR STUDY: OTHER NONSPECIFIC ABNORMAL FINDING OF LUNG FIELD R91.8 OTHER NONSPECIFIC ABNORMAL FINDING OF LUNG FIELD COMPARISON: CT chest 11/28/2017 RADIONUCLIDE AND DOSE: 11.1 mCi F18 FDG The route of agent administration: Intravenous FASTING BLOOD SUGAR: 90 mg/dl CONTRAST TYPE AND DOSE: No CT contrast given. TECHNIQUE: Blood glucose level was verified. Above dose of FDG was injected intravenously. 2-D seg mented attenuation correction images were obtained from the base of the skull to the midthighs. Nonc ontrast CT images were obtained for attenuation correction and fusion with emission images. CT image s were performed without oral or intravenous contrast and are not sensitive for parenchymal lesions. A series of overlapping emission PET images were obtained. Images reviewed and manipulated [email or web address] by the radiologist. Images stored on PACS. LIMITATIONS: None. FINDINGS: HEAD AND NECK: No areas of abnormal metabolic activity in the soft tissues of the head and neck. CHEST: 3.2 x 2.3 cm spiculated mass at the right hilum with SUV of 8.7 highly suspicious for malignan cy. The proximal anterior segmental bronchus is narrowed by the tumor on axial image 68/255. There are less than 7 mm short axis lymph nodes in the pretracheal and right paratracheal regions wit hout increased metabolic uptake. ABDOMEN AND PELVIS: No areas of abnormal metabolic activity in the abdomen or pelvis. Expected physi ologic activity is present in the genitourinary system and bowel. PROXIMAL LOWER EXTREMITIES: No areas of abnormal metabolic activity in the soft tissues of the lower extremities. BONES: No abnormal metabolic activity in the visualized skeleton. ADDITIONAL CT FINDINGS: Heavy coronary artery calcification. Diffuse degenerative changes throughout the thoracic and lumbar spine. Left hip replacement. OTHER: Liver background activity 2.2 SUV. 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
== END ==
LOC: RAD 15:55
PROVIDERS: ATTEND Internal Medicine Pulmonary Disease
DX: C34.11 Malignant neoplasm of upper lobe, right bronchus or lung (principal)
CPT/HCPCS: 78815; A9552

== ENCOUNTER 2018-06-24 14:23 | Emergency (ER) | payer MEDICARE, OTHER ==
[2018-06-24 14:28] VITALS: BP 157/74
--- NOTE | 2018-06-24 15:30 | ER Document Report ---
ED Medical Screen (RME) - General Chief Complaint: Fall Injury Stated Complaint: FALL Time Seen by Provider: 06/24/18 14:54 Primary Care Provider: KIRK TADEO MD [Primary Care Provider] - Follow up as needed Mode of Arrival: Wheelchair Information source: Patient Notes: Patient is an 83-year-old female presenting to the emergency department after suffering a mechanical fall. Patient states she was out shopping when she fell forward landing onto her face. She is unsure what caused the fall. She denies any episodes of dizziness prior to the fall. Patient is unsure if she lost consciousness but she does not think so. She denies any nausea or vomiting. Patient went to an urgent care to be seen prior to coming to the emergency department. Exam: Large hematoma noted above patient's right eyebrow with ecchymosis extending throughout cheek. I have greeted and performed a rapid initial assessment of this patient. A comprehensive ED assessment and evaluation of the patient, analysis of test results and completion of the medical decision making process will be conducted by additional ED providers. Dictation of this chart was performed using voice recognition software; therefore, there may be some unintended grammatical errors. TRAVEL OUTSIDE OF THE [place] IN LAST 30 DAYS: No - Related Data Allergies/Adverse Reactions: oxycodone HCl [From Percocet] Allergy (Severe, Verified 12/12/17 08:32) throw up violently cetirizine [From Zyrtec] Allergy (Verified 12/12/17 08:32) Dizzy gabapentin Allergy (Verified 12/12/17 08:32) Unknown tramadol Allergy (Verified 12/12/17 08:32) Nausea, Dizzy zolpidem tartrate [From Ambien] Adverse Reaction (Intermediate, Verified 12/12/17 08:32) unable to sleep ciprofloxacin [From Cipro] Adverse Reaction (Verified 06/24/18 14:52) Past Medical History - Past Medical History Cardiac Medical History: Reports: Hx Coronary Artery Disease - 3X STENT 2000, Hx Heart Attack - 2000, Hx Hypercholesterolemia, Hx Hypertension - ON MEDS Pulmonary Medical History: Denies: Hx Asthma, Hx Bronchitis, Hx Pneumonia Comment Only: Hx COPD - POSSIBLE H/O , NO MEDS; Pt denies 12/12/17 Neurological Medical History: Denies: Hx Cerebrovascular Accident, Hx Seizures Endocrine Medical History: Denies: Hx Hyperthyroidism, Hx Hypothyroidism Renal/ Medical History: Denies: Hx End Stage Renal Disease, Hx Peritoneal Dialysis Malignancy Medical History: Denies: Hx Brain Cancer, Hx Ovarian Cancer, Hx Renal (Kidney) Cancer GI Medical History: Denies: Hx Cirrhosis, Hx Crohn's Disease Musculoskeltal Medical History: Reports Hx Arthritis - Generalized , Denies Hx Fibromyalgia Past Surgical History: Reports: Hx Cardiac Surgery - 3 stents, Hx Coronary Stent - x3, Hx Orthopedic Surgery - left foot, total hip replacement R, Hx Tonsillectomy. Denies: Hx Hysterectomy - Immunizations Hx Diphtheria, Pertussis, Tetanus Vaccination: Yes History of Influenza Vaccine for 11/2016 - 04/2017 Season: Yes Influenza Administration Date for 11/2016 - 04/2017 Season: 11/26/16 Physical Exam - Vital signs Vitals: Temp Pulse Resp BP Pulse Ox 98.0 F 57 L 18 157/74 H 99 06/24/18 14:26 06/24/18 14:26 06/24/18 14:26 06/24/18 14:26 06/24/18 14:26 Course - Vital Signs Vital signs: Temp Pulse Resp BP Pulse Ox 98.0 F 57 L 18 157/74 H 99 06/24/18 14:26 06/24/18 14:26 06/24/18 14:26 06/24/18 14:26 06/24/18 14:26 Doctor's Discharge - Discharge Referrals: KIRK TADEO MD [Primary Care Provider] - Follow up as needed
--- NOTE | 2018-06-24 15:46 | RADIOLOGY REPORT (SQ) ---
EXAM DESCRIPTION: CT FACIAL AREA WITHOUT COMPLETED DATE/TIME: 06/24/2018 3:23 pm REASON FOR STUDY: fall COMPARISON: None. TECHNIQUE: Noncontrasted images through the facial bones and orbits windowed for bone and soft tissu e. Additional coronal and sagittal reconstructed images reviewed. All images stored on PACS. All CT scanners at this facility use dose modulation, iterative reconstruction, and/or weight based d osing when appropriate to reduce radiation dose to as low as reasonably achievable (ALARA). [facility]: Dose Right [facility]: CareDose [facility]: Dose Right [facility]: Teradose 4D [facility]: [employer] RADIATION DOSE: CT Rad equipment meets quality standard of care and radiation dose reduction techniq ues were employed. CTDIvol: 30.4 mGy. DLP: 557 mGy-cm. mGy. LIMITATIONS: None. FINDINGS: FACIAL BONES: Nondisplaced right orbital floor fracture. ORBITS: See above. PARANASAL SINUSES: Fluid right maxillary sinus. SOFT TISSUES: Right facial hematoma. INFERIOR BRAIN: See separate report. OTHER: No other significant finding. IMPRESSION: Nondisplaced right orbital floor fracture. TECHNICAL DOCUMENTATION: JOB ID: [id number] Quality ID # [id number]: Final reports with documentation of one or more dose reduction techniques (e.g., Au tomated exposure control, adjustment of the mA and/or kV according to patient size, use of iterative reconstruction technique) 2010 [employer] - [employer]- All Rights Reserved Reading location - IP/workstation name: [email or web address]
--- NOTE | 2018-06-24 15:48 | RADIOLOGY REPORT (SQ) ---
EXAM DESCRIPTION: CT HEAD WITHOUT COMPLETED DATE/TIME: 06/24/2018 3:23 pm REASON FOR STUDY: fall COMPARISON: None. TECHNIQUE: Axial images acquired through the brain without intravenous contrast. Images reviewed wi th bone, brain and subdural windows. Additional sagittal and coronal reconstructions were generated. Images stored on PACS. All CT scanners at this facility use dose modulation, iterative reconstruction, and/or weight based d osing when appropriate to reduce radiation dose to as low as reasonably achievable (ALARA). [facility]: Dose Right [facility]: CareDose [facility]: Dose Right [facility]: Teradose 4D [facility]: [employer] ([employer]) RADIATION DOSE: CT Rad equipment meets quality standard of care and radiation dose reduction techniq ues were employed. CTDIvol: 53.2 mGy. DLP: 1017 mGy-cm.mGy. LIMITATIONS: None. FINDINGS: VENTRICLES: Prominent. CEREBRUM: No masses. No hemorrhage. No midline shift. Areas of low density in the white matter mos t likely due to chronic micro-vascular ischemic change. No evidence for acute infarction. CEREBELLUM: No masses. No hemorrhage. No alteration of density. No evidence for acute infarction. EXTRAAXIAL SPACES: Age-related involutional change. No fluid collections. No masses. ORBITS AND GLOBE: See separate report of the same date. CALVARIUM: No fracture. PARANASAL SINUSES: See separate report of the same date. SOFT TISSUES: Right facial hematoma. OTHER: No other significant finding. IMPRESSION: CHRONIC CHANGES OF ATROPHY AND MICROVASCULAR ISCHEMIA. NO ACUTE PROCESS. EVIDENCE OF ACUTE STROKE: NO. TECHNICAL DOCUMENTATION: JOB ID: [id number] Quality ID # [id number]: Final reports with documentation of one or more dose reduction techniques (e.g., Au tomated exposure control, adjustment of the mA and/or kV according to patient size, use of iterative reconstruction technique) 2010 [employer]- All Rights Reserved Reading location - IP/workstation name: [email or web address]
--- NOTE | 2018-06-24 16:11 | RADIOLOGY REPORT (SQ) ---
EXAM DESCRIPTION: CT CERVICAL SPINE WITHOUT COMPLETED DATE/TIME: 06/24/2018 3:23 pm REASON FOR STUDY: fall COMPARISON: None. TECHNIQUE: Axial images acquired through the cervical spine without intravenous contrast. Images re viewed with lung, soft tissue and bone windows. Reconstructed coronal and sagittal MPR images review ed. Images stored on PACS. All CT scanners at this facility use dose modulation, iterative reconstruction, and/or weight based d osing when appropriate to reduce radiation dose to as low as reasonably achievable (ALARA). [facility]: Dose Right [facility]: CareDose [facility]: Dose Right [facility]: Teradose 4D [facility]: [employer] RADIATION DOSE: CT Rad equipment meets quality standard of care and radiation dose reduction techniq ues were employed. CTDIvol: 13.0 mGy. DLP: 235 mGy-cm. mGy. LIMITATIONS: None. FINDINGS: ALIGNMENT: Grade 1 spondylolisthesis C3-4, C4-5 MINERALIZATION: Normal. VERTEBRAL BODIES: No fractures or dislocation. DISCS: Multilevel disc space narrowing with osteophytes. FACETS, LATERAL MASSES, POSTERIOR ELEMENTS: Facet arthropathy. No fractures. No dislocation. No ac curyung findings. HARDWARE: None in the spine. VISUALIZED RIBS: No fractures. LUNG APICES AND SOFT TISSUES: No significant or acute findings. OTHER: No other significant finding. IMPRESSION: CHRONIC DEGENERATIVE CHANGES. NO ACUTE FINDINGS. TECHNICAL DOCUMENTATION: JOB ID: [id number] Quality ID # [id number]: Final reports with documentation of one or more dose reduction techniques (e.g., Au tomated exposure control, adjustment of the mA and/or kV according to patient size, use of iterative reconstruction technique) 2010 [employer]- All Rights Reserved Reading location - IP/workstation name: [email or web address]
[2018-06-24 17:31] LABS: ABSOLUTE BASOPHILS # (AUTO) 0.1 10^3/uL (0.0-0.2); ABSOLUTE EOSINOPHILS # (AUTO) 0.1 10^3/uL (0.0-0.6); ABSOLUTE LYMPHOCYTES (AUTO) 0.6 10^3/uL (0.5-4.7); ABSOLUTE MONOCYTES (AUTO) 0.5 10^3/uL (0.1-1.4); ABSOLUTE NEUT (AUTO) 5.8 10^3/uL (1.7-8.2); BASOPHILS % (AUTO) 1.3 % (0-2); EOSINOPHILS % (AUTO) 1.6 % (0-6); HEMATOCRIT 34.2 % (36.0-47.0); HEMOGLOBIN 11.8 g/dL (12.0-15.5); LYMPHOCYTES % (AUTO) 7.9 % (13-45); MEAN CORPUSCULAR HEMOGLOBIN 31.6 pg (27.0-33.4); MEAN CORPUSCULAR HGB CONC 34.6 g/dL (32.0-36.0); MEAN CORPUSCULAR VOLUME 91 fl (80-97); MONOCYTES % (AUTO) 7.4 % (3-13); PLATELET COUNT 346 10^3/uL (150-450); RED BLOOD COUNT 3.75 10^6/uL (3.72-5.28); RED CELL DISTRIBUTION WIDTH 14.9 % (11.5-14.0); SEGMENTED NEUTROPHILS % (AUTO) 81.8 % (42-78); TOTAL CELLS COUNTED % (AUTO) 100 %; WHITE BLOOD COUNT 7.1 10^3/uL (4.0-10.5)
[2018-06-24 17:33] LABS: APPEARANCE,URINE CLEAR; BILIRUBIN,URINE NEGATIVE (NEGATIVE); COLOR,URINE YELLOW; GLUCOSE, URINE NEGATIVE (NEGATIVE); KETONES,URINE TRACE mg/dL (NEGATIVE); LEUKOCYTE ESTERASE,URINE NEGATIVE (NEGATIVE); NITRITE,URINE NEGATIVE (NEGATIVE); PROTEIN,URINE NEGATIVE (NEGATIVE); URINE SPECIFIC GRAVITY 1.013; UROBILINOGEN,URINE NEGATIVE mg/dL (<2.0)
[2018-06-24 17:52] LABS: ALANINE AMINOTRANSFERASE 41 U/L (9-52); ALBUMIN 4.4 g/dL (3.5-5.0); ALKALINE PHOSPHATASE 58 U/L (38-126); ANION GAP 13 (5-19); ASPARTATE AMINO TRANSFERASE 40 U/L (14-36); BILIRUBIN,DIRECT 0.1 mg/dL (0.0-0.4); BILIRUBIN,TOTAL 0.6 mg/dL (0.2-1.3); BLOOD UREA NITROGEN 22 mg/dL (7-20); CARBON DIOXIDE 25 mmol/L (22-30); CHLORIDE 95 mmol/L (98-107); GLUCOSE 102 mg/dL (75-110); POTASSIUM 4.5 mmol/L (3.6-5.0); SODIUM 132.5 mmol/L (137-145)
[2018-06-24] MEDS ORDERED: NORMAL SALINE 1000 ML 1,000 ML IV ONE (19:13)
--- NOTE | 2018-06-24 20:32 | ER Document Report ---
ED Fall - General Chief Complaint: Fall Injury Stated Complaint: FALL Time Seen by Provider: 06/24/18 14:54 Primary Care Provider: FAYE GABRIEL DDS [ACTIVE STAFF] - Follow up as needed Mode of Arrival: Wheelchair Information source: Patient Notes: Patient is an 83-year-old female presenting to the emergency department after suffering a mechanical fall. Patient states she was out shopping when she fell forward landing onto her face. She is unsure what caused the fall. She denies any episodes of dizziness prior to the fall. Patient is unsure if she lost consciousness but she does not think so. She denies any nausea or vomiting. Patient went to an urgent care to be seen prior to coming to the emergency department. TRAVEL OUTSIDE OF THE [place] IN LAST 30 DAYS: No - Related data Allergies/Adverse Reactions: oxycodone HCl [From Percocet] Allergy (Severe, Verified 12/12/17 08:32) throw up violently cetirizine [From Zyrtec] Allergy (Verified 12/12/17 08:32) Dizzy gabapentin Allergy (Verified 12/12/17 08:32) Unknown tramadol Allergy (Verified 12/12/17 08:32) Nausea, Dizzy zolpidem tartrate [From Ambien] Adverse Reaction (Intermediate, Verified 12/12/17 08:32) unable to sleep ciprofloxacin [From Cipro] Adverse Reaction (Verified 06/24/18 14:52) Past Medical History - General Information source: Patient - Social History Smoking Status: Former Smoker Family History: CAD, Malignancy Patient has suicidal ideation: No Patient has homicidal ideation: No - Past Medical History Cardiac Medical History: Reports: Hx Coronary Artery Disease - 3X STENT 2000, Hx Heart Attack - 2000, Hx Hypercholesterolemia, Hx Hypertension - ON MEDS Pulmonary Medical History: Denies: Hx Asthma, Hx Bronchitis, Hx Pneumonia Comment Only: Hx COPD - POSSIBLE H/O , NO MEDS; Pt denies 12/12/17 Neurological Medical History: Denies: Hx Cerebrovascular Accident, Hx Seizures Endocrine Medical History: Denies: Hx Hyperthyroidism, Hx Hypothyroidism Renal/ Medical History: Denies: Hx End Stage Renal Disease, Hx Peritoneal Dialysis Malignancy Medical History: Denies: Hx Brain Cancer, Hx Ovarian Cancer, Hx Renal (Kidney) Cancer GI Medical History: Denies: Hx Cirrhosis, Hx Crohn's Disease Musculoskeletal Medical History: Reports Hx Arthritis - Generalized , Denies Hx Fibromyalgia Past Surgical History: Reports: Hx Cardiac Surgery - 3 stents, Hx Coronary Stent - x3, Hx Orthopedic Surgery - left foot, total hip replacement R, Hx Tonsillectomy. Denies: Hx Hysterectomy - Immunizations Hx Diphtheria, Pertussis, Tetanus Vaccination: Yes Hx Pneumococcal Vaccination: 02/25/07 Review of Systems - Review of Systems Constitutional: No symptoms reported EENT: No symptoms reported Cardiovascular: No symptoms reported Respiratory: No symptoms reported Gastrointestinal: No symptoms reported Genitourinary: No symptoms reported Female Genitourinary: No symptoms reported Musculoskeletal: See HPI Skin: See HPI Hematologic/Lymphatic: No symptoms reported Neurological/Psychological: No symptoms reported Physical Exam - Vital signs Vitals: Temp Pulse Resp BP Pulse Ox 98.0 F 57 L 18 157/74 H 99 06/24/18 14:26 06/24/18 14:26 06/24/18 14:26 06/24/18 14:06/24/18 14:26 - Notes Notes: PHYSICAL EXAMINATION: GENERAL: Well-appearing, well-nourished and in no acute distress. HEAD: Hematoma noted to right side of patient's face, ecchymosis noted around right eye with extension down into patient's right cheek. EYES: Pupils equal round and reactive to light, extraocular movements intact, conjunctiva are normal. Full range of motion to patient's bilateral eyes. ENT: Nares patent, oropharynx clear without exudates. Moist mucous membranes. No septal hematoma noted. NECK: Normal range of motion, supple without lymphadenopathy LUNGS: Breath sounds clear to auscultation bilaterally and equal. No wheezes rales or rhonchi. HEART: Regular rate and rhythm without murmurs ABDOMEN: Soft, nontender, nondistended abdomen. No guarding, no rebound. No masses appreciated. Female : deferred Musculoskeletal: Normal range of motion, no pitting or edema. No cyanosis. NEUROLOGICAL: Cranial nerves grossly intact. Normal speech. Normal sensory, motor exams PSYCH: Normal mood, normal affect. SKIN: Warm, Dry, normal turgor, no rashes or lesions noted. Course - Re-evaluation Re-evalutation: 06/24/18 20:32 CBC is unremarkable. CMP shows patient has hyponatremia with a sodium of 132. Patient states this is chronic and her family confirms this. Her EKG was unremarkable and unchanged from previous. Troponin was negative. Patient has a nondisplaced right orbital floor fracture. There is no evidence of entrapment. There is no septal hematoma. I contacted oral and maxillofacial surgeon section weaver Dr. Gabriel who agrees to see patient in the office. She should call him tomorrow morning to schedule appointment. I also called and consulted with our material specialist section weaver, Dr. Andersen who agrees to see patient in clinic for comprehensive eye examination. This was all discussed with patient and her family members and they verbalized under ending in agreement with plan. She will place ice to the area and take Tylenol for pain. - Vital Signs Vital signs: Temp Pulse Resp BP Pulse Ox 98.0 F 57 L 18 157/74 H 99 06/24/18 14:26 06/24/18 14:26 06/24/18 14:26 06/24/18 14:26 06/24/18 14:26 - Laboratory Result Diagrams: 06/24/18 17:06 06/24/18 17:06 Laboratory results interpreted by me: 06/24/18 06/24/18 06/24/18 17:06 17:06 17:06 Hgb 11.8 L Hct 34.2 L RDW 14.9 H Seg Neutrophils % 81.8 H Lymphocytes % 7.9 L Sodium 132.5 L Chloride 95 L BUN 22 H AST 40 H Urine Ketones TRACE H Urine Ascorbic Acid 20 H Discharge - Discharge Clinical Impression: Fracture of right orbital floor Qualifiers: Encounter type: initial encounter Fracture type: closed Qualified Code(s): S02.31XA - Fracture of orbital floor, right side, initial encounter for closed fracture Condition: Stable Disposition: HOME, SELF-CARE Additional Instructions: Orbital Floor Fracture You have a fracture of the bone below the eyeball. This fracture occurs when something blunt hits the eye. Sometimes no treatment is necessary. The bone heals, and everything gets back to normal. If a lot of tissue has been forced down into the sinus, surgery is necessary. In some cases, we must wait for the swelling to go down before deciding whether surgery is required. Rest in a reclining chair, or prop yourself up in bed on pillows. Don't rub your eye, and don't allow anything to push on it. If the doctor approves, you can apply cold packs (gently!). Don't blow your nose -- air will get up into the eye socket. Antibiotics may be prescribed. A shield can help if double vision bothers you. We are referring you to a physician who specializes in this type of problem. Call us if there is increasing pain, inability to close the eye, loss of vision, bleeding, or fever. Please follow-up with your primary care provider tomorrow. Let him know you are seen in the emergency department and were diagnosed with an orbital fracture. Please call the office of Dr. Gabriel tomorrow morning to schedule your follow-up appointment. Let them know you were seen here in the emergency department and that he was contacted and wanted to see you in his office. Patient please continue to apply ice packs to the area as this will help with swelling and inflammation. Take Tylenol for pain. Referrals: FAYE GABRIEL DDS [ACTIVE STAFF] - Follow up as needed
--- NOTE | 2018-06-24 23:27 | EKG REPORT ---
SEVERITY:- NORMAL ECG - SINUS RHYTHM : Confirmed by: Alexander Carvajal 24-Jun-2018 23:27:28
== END 2018-06-24 21:11 | disposition home or self-care (01) ==
LOC: ER 14:23
DX: S02.31XA Fracture of orbital floor, right side, initial encounter for closed fracture (principal); W19.XXXA Unspecified fall, initial encounter; Y93.89 Activity, other specified; Y92.512 Supermarket, store or market as the place of occurrence of the external cause; E87.1 Hypo-osmolality and hyponatremia; I25.10 Atherosclerotic heart disease of native coronary artery without angina pectoris; I10 Essential (primary) hypertension; I25.2 Old myocardial infarction; Z95.5 Presence of coronary angioplasty implant and graft; Z88.5 Allergy status to narcotic agent; Z88.8 Allergy status to other drugs, medicaments and biological substances; Z88.6 Allergy status to analgesic agent; Z87.891 Personal history of nicotine dependence
CPT/HCPCS: 93005; 99284; 96360; 36415; 85025; 80053; 81001; 84484; 70450; 70486; 72125; 93010; J7030

== ENCOUNTER → 2019-07-14 | Outpatient (CLI) | payer MEDICARE, OTHER ==
[2019-07-14 14:09] LABS: ANION GAP 9 (5-19); BLOOD UREA NITROGEN 21 mg/dL (7-20); CALCIUM 9.2 mg/dL (8.4-10.2); CARBON DIOXIDE 24 mmol/L (22-30); CHLORIDE 94 mmol/L (98-107); GLUCOSE 96 mg/dL (75-110); POTASSIUM 4.7 mmol/L (3.6-5.0)
== END ==
LOC: OD 13:08
PROVIDERS: ATTEND Nurse Practitioner Adult Health
DX: I10 Essential (primary) hypertension (principal)
CPT/HCPCS: 36415; 80048